=== PATIENT | male | born 1970 | race Caucasian/White ===

== ENCOUNTER 2022-06-02 13:01 | Emergency (ER) | payer OTHER, SELFPAY ==
[2022-06-02] VITALS (20 sets, daily range): BP systolic 110–136; BP diastolic 68–94; PULSE 64–85; RESP 11–19; TEMP 37; O2SAT 94–98
--- NOTE | ~2022-06-02 | XR_ITS ---
EXAMINATION: XR chest 2V DATE: 06/02/2022 13:48 INDICATION: Tachycardia. Midline chest pain. TECHNIQUE: PA and lateral views of the chest were obtained. COMPARISON: Chest radiograph dated 09/14/2017 FINDINGS: Unchanged mild biapical pleural-parenchymal scarring. No other airspace opacities, pulmonary edema, p leural effusion or pneumothorax. The cardiomediastinal silhouette is normal. Visualized bones and sof t tissues are unremarkable. IMPRESSION: 1. No acute cardiopulmonary disease. Reviewed, dictated and finalized at location A.
--- NOTE | 2022-06-02 13:03 | ECG_ITS ---
Measurements Intervals [place] Rate: 79 P: 72 CT: 150 QRS: 39 QRSD: 93 T: 55 QT: 363 QTc: 418 Interpretive Statements SINUS RHYTHM BASELINE ARTIFACT- II, III NORMAL ECG NO PREVIOUS ECG AVAILABLE FOR COMPARISON Electronically Signed On 06-02-2022 21:22:43 CDT by Luis Manuel Finnegan D.O.
[2022-06-02 13:19] LABS: Basophils Absolute Auto 0.1 K/mm3 (0.0-0.1); Basophils Percent Auto 0.6 % (0.2-1.2); Eosinophils Absolute Auto 0.1 K/mm3 (0-0.3); Eosinophils Percent Auto 0.8 % (0-4.4); Hematocrit 41.6 % (42.0-52.0); Hemoglobin 13.4 g/dL (14.0-18.0); Immature Granulocyte Absolute 0.03 K/mm3 (0.00-0.031); Immature Granulocyte Percent A 0.2 % (0-0.5); Lymphocytes Absolute Auto 2.38 K/mm3 (0.9-3.2); Lymphocytes Percent Auto 19.3 % (18.3-44.2); Mean Corpuscular HGB Conc 32.2 g/dl (32-36); Mean Corpuscular Volume 96.3 fl (80-100); Monocytes Absolute Auto 0.6 K/mm3 (0.1-0.6); Monocytes Percent Auto 5.1 % (2.6-8.5); Neutrophils Absolute Auto 9.1 K/mm3 (1.3-6.7); Platelet Count Result 274 k/mm3 (150-375); Red Blood Count 4.32 M/mm3 (4.6-6.20); Red Cell Distribution Width 14.5 % (11.5-14.5); White Blood Count 12.3 K/mm3 (4.5-10.0)
[2022-06-02 13:30] LABS: INR 0.9
[2022-06-02 13:31] LABS: Partial Thromboplastin Time 28.3 SECONDS (22.3-36.8)
[2022-06-02 13:32] LABS: Alanine Aminotransferase 27 U/L (6-50); Albumin Level 4.6 g/dL (3.5-5.1); Alkaline Phosphatase 110 U/L (38-126); Anion Gap 11 mmol/L (8-16); Aspartate Amino Transferase 27 U/L (17-59); Bilirubin,Total 0.2 mg/dL (0.2-1.3); Blood Urea Nitrogen 10 mg/dL (9-20); Calcium 9.3 mg/dL (8.4-10.2); Carbon Dioxide 22 mmol/L (22-30); Chloride 105 mmol/L (98-107); Estimated CRCL calculation 103 ml/min; Estimated Glomerular Filt Rate > 60; Glucose 99 mg/dL (65-110); Lipase 91 U/L (23-300); Potassium 3.9 mmol/L (3.4-5.0); Sodium 138 mmol/L (137-145)
[2022-06-02] MEDS: ASPIRIN 81 MG CHEWABLE TABLET 324 MG PO (13:38)
[2022-06-02 13:44] LABS: Troponin I < 0.012 ng/mL (0.000-0.034)
--- NOTE | 2022-06-02 14:04 | ED.CHESTPAIN ---
HPI - Chest Pain General Chief Complaint: Chest Pain Stated Complaint: chest pain Time Seen by Provider: 06/02/22 13:52 History of Present Illness HPI narrative: 51-year-old male presents to the emergency room today for complaints of substernal chest pain. He says that it will radiate into his left jaw at times. Pain started about an hour prior to coming to the emergency room. No numbness or tingling in his arms or legs. Denies having any shortness of breath or cough. He denies any previous history of [place]. He has seen a control clerk head in the past related to frequent PVCs. He says that he had a stress test done about a year ago that was concerning. They did a follow-up study that involved using contrast that did not show any blockages. He is a smoker. Denies any significant family history of any heart problems. Related Data Home Medications Medication Instructions Recorded Confirmed amitriptyline 25 mg tablet mg 06/02/22 aspirin 81 mg tablet,delayed mg 06/02/22 release cetirizine 10 mg tablet (Zyrtec) 10 mg PO DAILY 06/02/22 06/02/22 cholecalciferol (vitamin D3) 25 25 mcg PO DAILY 06/02/22 06/02/22 mcg (1,000 unit) tablet diltiazem HCl 120 mg mg PO 06/02/22 capsule,extended release 24 hr, controlled (DILT-XR) escitalopram oxalate 20 mg tablet mg 06/02/22 fluticasone propionate 50 intranasal 06/02/22 mcg/actuation nasal spray,suspension meloxicam 7.5 mg tablet mg 06/02/22 rabeprazole 20 mg tablet,delayed mg PO 06/02/22 release rosuvastatin 10 mg tablet mg 06/02/22 triamcinolone acetonide 0.1 % applic topical 06/02/22 topical cream vitamin B complex 1 tablet PO DAILY 06/02/22 06/02/22 Allergies Allergy/AdvReac Type Severity Reaction Status Date / Time codeine Allergy Difficulty Verified 06/02/22 13:34 Breathing Review of Systems Review of Systems: CONSTITUTIONAL: Denies fever, chills, or sweats. EYES: Denies visual changes, redness, or discharge. ENT: Denies rhinorrhea, congestion, sore throat, or otalgia. CARDIOVASCULAR: substernal chest pain, no palpitatoins, no extremity swelling RESPIRATORY: Denies cough or dyspnea. GASTROINTESTINAL: Denies abdominal pain, nausea, vomiting, or diarrhea. GENITOURINARY: Denies dysuria or hematuria. SKIN: Denies rash or itching. MUSCULOSKELETAL: Denies back pain, joint pain, or myalgia. NEUROLOGIC: Denies headache, numbness, dizziness, or weakness. PSYCHIATRIC: Denies anxiety or depression. Exam Narrative: GENERAL: Well-appearing, well-nourished, and in no acute distress. HEAD: Normocephalic, atraumatic. NECK: Supple. No adenopathy or masses. No carotid bruits or JVD CHEST: Clear to auscultation. No respiratory distress. No wheezes rales or rhonchi HEART: Regular rate and rhythm. No murmur heard. Normal peripheral pulses. ABDOMEN: Soft, nontender, nondistended, normal active bowel sounds. EXTREMITIES: Normal range of motion. No edema. SKIN: Warm, dry, no rash. NEURO: No focal deficits. Alert and oriented x3. PSYCH: Normal mood and affect. Course Course Emergency Course: 1644 I have spoken with Cardiology, Dr. Finnegan. Agrees with plan to discharge patient to home since he is currently pain free, low risk with heart score of 2-3, and 2 negative trops in the ER. They would not be able to do a stress test over the weekend in the hospital. He recommends giving patient nitro to take at home if needed and having him call his office to be seen next week for additional evaluation and testing. I have discussed all of this with the patient and he is agreeable with this plan. Vital Signs Vital signs: Vital Signs Temperature 37.0 C 06/02/22 13:12 Pulse Rate 78 06/02/22 13:12 Respiratory Rate 16 06/02/22 13:12 Blood Pressure 119/68 06/02/22 13:12 Pulse Oximetry 97 06/02/22 13:12 Temperature 37.0 C 06/02/22 13:12 Pulse Rate 85 06/02/22 13:33 Respiratory Rate 16 06/02/22 13:12 Blood Pressure 119/68 06/02/22 13:12 P
[2022-06-02 14:42] LABS: D Dimer < 0.27 ug/mL (<0.48)
[2022-06-02] MEDS: fentaNYL CITRATE INJ (*CRX) 100 MCG/2 ML VIAL 50 MCG IV PUSH (14:51)
[2022-06-02] MEDS: NITROGLYCERIN SL 0.4 MG TABLET SUBLINGUAL (14:51)
[2022-06-02 16:40] LABS: Troponin I < 0.012 ng/mL (0.000-0.034)
== END 2022-06-02 18:05 | disposition home or self-care (01) ==
PROVIDERS: General Practice; Emergency Provider Nurse Practitioner Family; PCP Physician Assistant
DX: R07.2 Precordial pain (principal); Z79.82 Long term (current) use of aspirin
CPT/HCPCS: 36415; 71046; 80053; 83690; 84484; 85025; 85380; 85610; 85730; 93005; 96374; 99284; A9270; J3010

== ENCOUNTER 2022-06-04 10:40 | Emergency (ER) | payer OTHER, SELFPAY ==
[2022-06-04] VITALS (26 sets, daily range): BP systolic 111–140; BP diastolic 69–89; PULSE 64–93; RESP 12–20; TEMP 36.6; O2SAT 95–100
--- NOTE | ~2022-06-04 | XR_ITS ---
EXAMINATION: XR chest 2V DATE: 06/04/2022 11:13 INDICATION: Chest pain. TECHNIQUE: Frontal and lateral views of the chest were obtained. COMPARISON: Chest 2 views 06/02/2022 FINDINGS: There is mild scarring at the lung apices. No pleural effusion or pneumothorax. The heart s ize is normal. IMPRESSION: 1. Stable mild scarring at the lung apices. Reviewed, dictated and finalized at location A.
--- NOTE | ~2022-06-04 | CT_ITS ---
EXAMINATION: CTA chest DATE: 06/04/2022 11:59 INDICATION: Midsternal chest pain. Shortness of breath. TECHNIQUE: Computed tomographic angiography (CTA) of the chest was performed with 100 mL Omnipaque-35 0 intravenous contrast. Automated exposure control and iterative reconstruction technique were employ ed. The dose-length product was 282.30 mGy-cm. Maximum intensity projection 3D-reconstructions of the aorta and other arteries were constructed by the technologist on a separate workstation. COMPARISON: Chest 2 views 06/04/2022 FINDINGS: There is mild scarring at the lung apices. There is mild emphysema. There is mild atelectas is bilaterally. The heart size is normal. No pericardial effusion. Thoracic aorta is normal. There is no pulmonary embolus, but sensitivity is mildly decreased by suboptimal opacification of the pulmona ry arteries. The gallbladder is contracted. There is mild thoracic spondylosis. IMPRESSION: 1. No pulmonary embolus. 2. Mild emphysema. 3. Mild scarring at the lung apices. Reviewed, dictated and finalized at location A.
--- NOTE | 2022-06-04 10:41 | ECG_ITS ---
Measurements Intervals [place] Rate: 76 P: 72 [place]: 142 QRS: 44 QRSD: 98 T: 69 QT: 356 QTc: 402 Interpretive Statements SINUS RHYTHM BASELINE ARTIFACT- II, III, AVF NORMAL ECG COMPARED TO ECG 06/02/2022 13:05:18 NO SIGNIFICANT CHANGES Electronically Signed On 06-04-2022 21:40:09 CDT by Luis Manuel Finnegan D.O.
[2022-06-04] MEDS: ASPIRIN 81 MG CHEWABLE TABLET 324 MG PO (10:52)
--- NOTE | 2022-06-04 11:03 | ED.CHESTPAIN ---
HPI - Chest Pain General Chief Complaint: Chest Pain Stated Complaint: chest pain Time Seen by Provider: 06/04/22 10:46 Source: patient, RN notes reviewed and old records reviewed Mode of arrival: ambulatory Limitations: no limitations History of Present Illness HPI narrative: This is a 51 year old male with history of tachycardia who presents for evaluation of chest pain. Patient developed chest pain on Sunday and it has been intermittent. On Sunday, he reported right sternal pain that labs for hours. He was evaluated in ER and discharged home with nitroglycerin. He was going to follow up with cardiology tomorrow. He developed right sternal pain last night that resolved after taking nitroglycerin. This morning he was resting when he developed burning pressure across his whole chest pain. He took nitroglycerin x 2 without relief so he came to ER. He denies associated sob, dizziness or nausea. He reports 1 year ago he had concerning stress test so a CTA heart was performed. Related Data Home Medications Medication Instructions Recorded Confirmed amitriptyline 25 mg tablet mg 06/02/22 aspirin 81 mg tablet,delayed mg 06/02/22 release cetirizine 10 mg tablet (Zyrtec) 10 mg PO DAILY 06/02/22 06/02/22 cholecalciferol (vitamin D3) 25 25 mcg PO DAILY 06/02/22 06/02/22 mcg (1,000 unit) tablet diltiazem HCl 120 mg mg PO 06/02/22 capsule,extended release 24 hr, controlled (DILT-XR) escitalopram oxalate 20 mg tablet mg 06/02/22 fluticasone propionate 50 intranasal 06/02/22 mcg/actuation nasal spray,suspension meloxicam 7.5 mg tablet mg 06/02/22 rabeprazole 20 mg tablet,delayed mg PO 06/02/22 release rosuvastatin 10 mg tablet mg 06/02/22 triamcinolone acetonide 0.1 % applic topical 06/02/22 topical cream vitamin B complex 1 tablet PO DAILY 06/02/22 06/02/22 Allergies Allergy/AdvReac Type Severity Reaction Status Date / Time codeine Allergy Difficulty Verified 06/04/22 10:47 Breathing Review of Systems Review of Systems: All systems reviewed & are unremarkable except as noted in HPI and below Constitutional: Constitutional: Denies chills, Denies fatigue and Denies fever(s) Cardiovascular: Cardiovascular: Reports chest pain and Denies rapid heart rate Respiratory: Respiratory: Denies chest congestion and Denies cough Gastrointestinal: Gastrointestinal: Denies abdominal pain, Reports heartburn, Denies nausea and Denies vomiting PMFSH Past Medical History Medical History (Updated 06/04/22 @ 14:37 by Celina Traylor MD) Tachycardia Exam Narrative: GENERAL: Well-appearing, well-nourished, and in no acute distress. HEAD: Normocephalic, atraumatic EYES: PERRLA and EOMI, conjunctiva clear without discharge THROAT:Mucous membranes moist, Oropharynx normal without erythema, exudate, peritonsillar swelling or fluctuance NECK: Supple, without lymphadenopathy or mass RESPIRATORY: No respiratory distress, Airway patent, Respirations non-labored, Clear to auscultation without rales, rhonchi or wheeze HEART: Regular rate and rhythm. No murmur heard. Normal peripheral pulses. ABDOMEN: Soft, nontender, nondistended, normal active bowel sounds. No masses. No rebound or guarding, No organomegaly. EXTREMITIES: No edema, normal strength with full range of motion. SKIN: Warm, dry, normal color without rash NEURO: Alert and oriented x3. CN 2-12 grossly intact. No focal deficits. PSYCH: Normal mood and affect. Course Reevaluation(s) Reevaluation #1: I Discussed case with DR. Finneagn about patient. His pain sound atypical . Dr. Finnegan agrees that patient's symptoms unlikely cardiac given recent normal CTA heart . He does want to follow up with patient as outpatient. Date: 06/04/22 Time: 12:59 Reevaluation #2: PAtient's evaluation is unremarkable and pain atypical. Aortic etiology rule out and negative d dimer 2 days ago. No sign of DVT. Unlikely ACS but will follow up wit
[2022-06-04 11:06] LABS: Basophils Absolute Auto 0.1 K/mm3 (0.0-0.1); Basophils Percent Auto 0.7 % (0.2-1.2); Eosinophils Absolute Auto 0.2 K/mm3 (0-0.3); Eosinophils Percent Auto 1.8 % (0-4.4); Hematocrit 45.6 % (42.0-52.0); Hemoglobin 14.8 g/dL (14.0-18.0); Immature Granulocyte Absolute 0.03 K/mm3 (0.00-0.031); Immature Granulocyte Percent A 0.3 % (0-0.5); Lymphocytes Absolute Auto 2.07 K/mm3 (0.9-3.2); Lymphocytes Percent Auto 19.1 % (18.3-44.2); Mean Corpuscular HGB Conc 32.5 g/dl (32-36); Mean Corpuscular Hemoglobin 31.3 pg (26-34); Mean Corpuscular Volume 96.4 fl (80-100); Mean Platelet Volume 8.9 fl (7.4-10.4); Monocytes Absolute Auto 0.7 K/mm3 (0.1-0.6); Monocytes Percent Auto 6.5 % (2.6-8.5); Neutrophils Absolute Auto 7.8 K/mm3 (1.3-6.7); Neutrophils Percent Auto 71.6 % (45.5-73.1); Platelet Count Result 303 k/mm3 (150-375); Red Blood Count 4.73 M/mm3 (4.6-6.20); Red Cell Distribution Width 14.5 % (11.5-14.5); White Blood Count 10.9 K/mm3 (4.5-10.0)
[2022-06-04 11:16] LABS: Alanine Aminotransferase 26 U/L (6-50); Albumin Level 4.5 g/dL (3.5-5.1); Alkaline Phosphatase 102 U/L (38-126); Anion Gap 9 mmol/L (8-16); Aspartate Amino Transferase 28 U/L (17-59); Bilirubin,Total 0.3 mg/dL (0.2-1.3); Blood Urea Nitrogen 16 mg/dL (9-20); Calcium 9.2 mg/dL (8.4-10.2); Carbon Dioxide 28 mmol/L (22-30); Chloride 105 mmol/L (98-107); Estimated CRCL calculation 81 ml/min; Estimated Glomerular Filt Rate > 60; Glucose 110 mg/dL (65-110); Lipase 114 U/L (23-300); Potassium 4.3 mmol/L (3.4-5.0); Sodium 142 mmol/L (137-145)
[2022-06-04 11:28] LABS: Troponin I < 0.012 ng/mL (0.000-0.034)
[2022-06-04 11:34] LABS: INR 0.9
[2022-06-04 11:35] LABS: Partial Thromboplastin Time 29.1 SECONDS (22.3-36.8)
--- NOTE | 2022-06-04 11:53 | PC.NURSE ---
pt.to CT
[2022-06-04] MEDS: BELLADONNA ALK/PHENOB ELIX 10 ML, MAG HYDROX/ALUMINUM HYD/SIMETH 30 ML, LIDOCAINE HCL 2... PO (12:47)
[2022-06-04 14:23] LABS: Troponin I < 0.012 ng/mL (0.000-0.034)
== END 2022-06-04 14:50 | disposition home or self-care (01) ==
PROVIDERS: Emergency Provider General Practice; PCP Physician Assistant
DX: R07.89 Other chest pain (principal); J43.9 Emphysema, unspecified; Z79.82 Long term (current) use of aspirin
CPT/HCPCS: 36415; 71046; 71275; 80053; 83690; 84484; 85025; 85610; 85730; 93005; 99284; A9270; Q9967

== ENCOUNTER 2022-11-22 11:05 | Emergency (ER) | payer OTHER, SELFPAY ==
--- NOTE | ~2022-11-22 | XR_ITS ---
EXAMINATION: XR chest 2V DATE: 11/22/2022 12:04 INDICATION: Chest pain. TECHNIQUE: Frontal and lateral views of the chest were obtained on 3 radiographs. COMPARISON: Chest 2 views 06/04/2022, chest CT 06/04/2022 FINDINGS: There is mild scarring at the lung apices. No pleural effusion or pneumothorax. The heart s ize is normal. IMPRESSION: 1. Stable mild scarring at the lung apices. Reviewed, dictated and finalized at location A. GRATION INSPECTOR
--- NOTE | 2022-11-22 11:05 | ECG_ITS ---
Measurements Intervals [place] Rate: 91 P: 60 [place]: 120 QRS: 59 QRSD: 91 T: 73 QT: 339 QTc: 418 Interpretive Statements SINUS RHYTHM NORMAL ECG COMPARED TO ECG 06/04/2022 10:47:33 NO SIGNIFICANT CHANGES Electronically Signed On 11-22-2022 11:46:31 INFRASTRUCTURE ARCHITECT by Luis Manuel Finnegan D.O.
[2022-11-22 11:11] VITALS: BP 125/82; PULSE 96; RESP 12; TEMP 36.9; O2SAT 100
[2022-11-22 11:29] LABS: Basophils Absolute Auto 0.1 K/mm3 (0.0-0.1); Basophils Percent Auto 0.5 % (0.2-1.2); Eosinophils Percent Auto 0.2 % (0-4.4); Hematocrit 43.2 % (42.0-52.0); Hemoglobin 14.2 g/dL (14.0-18.0); Immature Granulocyte Absolute 0.06 K/mm3 (0.00-0.031); Immature Granulocyte Percent A 0.5 % (0-0.5); Lymphocytes Absolute Auto 1.93 K/mm3 (0.9-3.2); Lymphocytes Percent Auto 15.4 % (18.3-44.2); Mean Corpuscular HGB Conc 32.9 g/dl (32-36); Mean Corpuscular Hemoglobin 31.6 pg (26-34); Mean Corpuscular Volume 96.2 fl (80-100); Monocytes Absolute Auto 1.1 K/mm3 (0.1-0.6); Monocytes Percent Auto 8.5 % (2.6-8.5); Neutrophils Absolute Auto 9.4 K/mm3 (1.3-6.7); Neutrophils Percent Auto 74.9 % (45.5-73.1); Platelet Count Result 302 k/mm3 (150-375); Red Blood Count 4.49 M/mm3 (4.6-6.20); Red Cell Distribution Width 13.8 % (11.5-14.5); White Blood Count 12.6 K/mm3 (4.5-10.0)
[2022-11-22 11:41] LABS: Alanine Aminotransferase 26 U/L (6-50); Albumin Level 4.7 g/dL (3.5-5.1); Alkaline Phosphatase 94 U/L (38-126); Anion Gap 7 mmol/L (8-16); Aspartate Amino Transferase 22 U/L (17-59); Bilirubin,Total 0.4 mg/dL (0.2-1.3); Blood Urea Nitrogen 20 mg/dL (9-20); Calcium 9.1 mg/dL (8.4-10.2); Carbon Dioxide 25 mmol/L (22-30); Chloride 106 mmol/L (98-107); Estimated CRCL calculation 95 ml/min; Estimated Glomerular Filt Rate > 60; Glucose 96 mg/dL (65-110); Lipase 133 U/L (23-300); Potassium 4.2 mmol/L (3.4-5.0); Sodium 138 mmol/L (137-145)
[2022-11-22 11:46] LABS: INR 0.9; Prothrombin Time 11.8 Seconds (11.1-14.7)
[2022-11-22 11:47] LABS: Partial Thromboplastin Time 26.2 SECONDS (22.3-36.8)
[2022-11-22 11:52] LABS: Troponin I < 0.012 ng/mL (0.000-0.034)
[2022-11-22 11:53] VITALS: BP 117/84; PULSE 80; RESP 18; O2SAT 99
--- NOTE | 2022-11-22 13:23 | ED.CHESTPAIN ---
HPI - Chest Pain General Chief Complaint: Chest Pain Stated Complaint: chest pain, headache Time Seen by Provider: 11/22/22 13:14 Source: patient and family Mode of arrival: ambulatory Limitations: no limitations History of Present Illness HPI narrative: Patient is 52 years old white male presented to the ED with sudden onset of sharp pain at left chest while sitting watching TV, denies any aggravating or relieving factors, 10 out of 10, 2 out of 10 on arrival to the ED. He denies radiation of pain, shortness of breath, fever, chills, nausea, vomiting or respiratory symptoms. Patient is telling me that this is the fourth ED visit for the same complaints over the last few months. Patient was in our hospital May 2022 with negative work-up. Patient reports lifting heavy bags of dirt and visits 5 days ago and yesterday Related Data Home Medications Medication Instructions Recorded Confirmed amitriptyline 25 mg tablet mg 06/02/22 aspirin 81 mg tablet,delayed mg 06/02/22 release cetirizine 10 mg tablet (Zyrtec) 10 mg PO DAILY 06/02/22 06/02/22 cholecalciferol (vitamin D3) 25 25 mcg PO DAILY 06/02/22 06/02/22 mcg (1,000 unit) tablet diltiazem HCl 120 mg mg PO 06/02/22 capsule,extended release 24 hr, controlled (DILT-XR) escitalopram oxalate 20 mg tablet mg 06/02/22 fluticasone propionate 50 intranasal 06/02/22 mcg/actuation nasal spray,suspension meloxicam 7.5 mg tablet mg 06/02/22 rabeprazole 20 mg tablet,delayed mg PO 06/02/22 release rosuvastatin 10 mg tablet mg 06/02/22 triamcinolone acetonide 0.1 % applic topical 06/02/22 topical cream vitamin B complex 1 tablet PO DAILY 06/02/22 06/02/22 Allergies Allergy/AdvReac Type Severity Reaction Status Date / Time codeine Allergy Difficulty Verified 06/04/22 10:47 Breathing Review of Systems Review of Systems: All systems reviewed & are unremarkable except as noted in HPI and below PMFSH Past Medical History Medical History Tachycardia Exam Narrative: General appearance: Well-developed, well-nourished Skin: Normal color Head: Normocephalic, nontraumatic Eyes: Clear conjunctiva ENT: Oropharynx normal, ears normal, nose normal Neck: Supple, nontender Chest and respiratory: Airway patent, no respiratory distress, no accessory muscle use, mild diffuse tenderness left chest, no bruises, no swelling or rash Heart: Regular rate/rhythm Abdomen: Soft, nontender, no organomegaly, quiet bowel sounds Vascular: Normal peripheral pulses, normal capillary refill. Musculoskeletal: Normal range of motion, nontender back Neurologic: Alert and oriented ?3, RN NIGHT is normal as tested, no gross motor deficit Course Reevaluation(s) Reevaluation #1: Currently patient is pain-free, 0 out of 10, Date: 11/22/22 Time: 13:58 Vital Signs Vital signs: Vital Signs Temperature 36.9 C 11/22/22 11:11 Pulse Rate 96 11/22/22 11:11 Respiratory Rate 12 11/22/22 11:11 Blood Pressure 125/82 11/22/22 11:11 Pulse Oximetry 100 11/22/22 11:11 Oxygen Delivery Room Air 11/22/22 11:11 Temperature 36.9 C 11/22/22 11:11 Pulse Rate 80 11/22/22 11:53 Respiratory Rate 18 11/22/22 11:53 Blood Pressure 117/84 11/22/22 11:53 Pulse Oximetry 99 11/22/22 11:53 Oxygen Delivery Room Air 11/22/22 11:49 MDM - Chest Pain MDM Narrative Medical decision making narrative: Patient is 52 years old white male presents with sudden onset of left chest pain while sitting watching TV, sharp, had recent lifting and pushing over the last few days at his backyard. Physical examination showed some tenderness
[2022-11-22] MEDS: KETOROLAC 30 MG/ML VIAL (*BKC) IV PUSH (13:56)
[2022-11-22 14:15] VITALS: BP 114/72; PULSE 77; RESP 14; O2SAT 98
[2022-11-22 14:25] LABS: Troponin I < 0.012 ng/mL (0.000-0.034)
== END 2022-11-22 14:16 | disposition home or self-care (01) ==
PROVIDERS: Emergency Provider Emergency Medicine; PCP Physician Assistant
DX: R07.89 Other chest pain (principal)
CPT/HCPCS: 36415; 71046; 80053; 83690; 84484; 85025; 85610; 85730; 93005; 96374; 99284; J1885

== ENCOUNTER 2023-03-20 19:28 | Emergency (ER) | payer OTHER, SELFPAY ==
[2023-03-20] VITALS (27 sets, daily range): BP systolic 100–129; BP diastolic 68–100; PULSE 75–104; RESP 9–22; TEMP 37; O2SAT 94–98
--- NOTE | ~2023-03-20 | CT_ITS ---
Clinical Indication: Chest pain, dissection CT Scan of the Chest with Contrast: Technique: Contiguous sections were acquired throughout the chest after intravenous administration of 100 cc of Omnipaque 350. Dose reduction technique was used on this scan by utilizing automated expos ure control and iterative reconstruction technique. The dose-length product (DLP) was 295.77 mGy-cm. COMPARISON: 06/04/2022 Findings: There is no evidence of any significant mediastinal, hilar or axillary lymphadenopathy. There is no evidence of aortic dissection or aneurysm. There is no evidence of pleural or pericardial effusion. The lungs are clear. No pulmonary nodules or infiltrates are noted. Images through the upper abdomen reveal no abnormalities. Impression: No aortic aneurysm or dissection. Clear lungs. Reviewed, dictated and finalized at [facility]. Impression: No aortic aneurysm or dissection. Clear lungs.
--- NOTE | ~2023-03-20 | XR_ITS ---
Clinical Indication: Chest pain PA and lateral views of the chest: Comparison: 11/22/2022 Findings: The lungs are clear, without evidence of focal consolidation or pleural effusion. Cardiome diastinal silhouette is within normal limits. Bones and soft tissues are unremarkable. Impression: Normal chest. Reviewed, dictated and finalized at location . Impression: Normal chest.
--- NOTE | 2023-03-20 19:29 | ECG_ITS ---
Measurements Intervals [place] Rate: 92 P: 68 [place]: 145 QRS: 38 QRSD: 108 T: 64 QT: 342 QTc: 423 Interpretive Statements SINUS RHYTHM BASELINE ARTIFACT- I, II, V4 NORMAL ECG COMPARED TO ECG 11/22/2022 11:09:42 NO SIGNIFICANT CHANGES Electronically Signed On 03-21-2023 6:20:57 CDT by Luis Manuel Finnegan D.O.
[2023-03-20 19:43] LABS: Basophils Absolute Auto 0.1 K/mm3 (0.0-0.1); Basophils Percent Auto 0.8 % (0.2-1.2); Eosinophils Absolute Auto 0.4 K/mm3 (0-0.3); Eosinophils Percent Auto 3.3 % (0-4.4); Hematocrit 39.8 % (42.0-52.0); Hemoglobin 13.3 g/dL (14.0-18.0); Immature Granulocyte Absolute 0.05 K/mm3 (0.00-0.031); Immature Granulocyte Percent A 0.4 % (0-0.5); Lymphocytes Absolute Auto 2.95 K/mm3 (0.9-3.2); Lymphocytes Percent Auto 25.4 % (18.3-44.2); Mean Corpuscular HGB Conc 33.4 g/dl (32-36); Mean Corpuscular Volume 95.7 fl (80-100); Monocytes Percent Auto 8.9 % (2.6-8.5); Neutrophils Absolute Auto 7.1 K/mm3 (1.3-6.7); Neutrophils Percent Auto 61.2 % (45.5-73.1); Platelet Count Result 250 k/mm3 (150-375); Red Blood Count 4.16 M/mm3 (4.6-6.20); Red Cell Distribution Width 13.1 % (11.5-14.5); White Blood Count 11.6 K/mm3 (4.5-10.0)
[2023-03-20 19:54] LABS: Alanine Aminotransferase 27 U/L (6-50); Albumin Level 4.4 g/dL (3.5-5.1); Alkaline Phosphatase 92 U/L (38-126); Anion Gap 8 mmol/L (8-16); Aspartate Amino Transferase 30 U/L (17-59); Bilirubin,Total 0.4 mg/dL (0.2-1.3); Blood Urea Nitrogen 19 mg/dL (9-20); Calcium 8.8 mg/dL (8.4-10.2); Carbon Dioxide 24 mmol/L (22-30); Chloride 105 mmol/L (98-107); Estimated CRCL calculation 77 ml/min; Estimated Glomerular Filt Rate > 60; Glucose 108 mg/dL (65-110); INR 0.9; Lipase 75 U/L (23-300); Potassium 3.9 mmol/L (3.4-5.0); Prothrombin Time 12.7 Seconds (11.1-14.7); Sodium 137 mmol/L (137-145)
[2023-03-20] MEDS: ASPIRIN 81 MG CHEWABLE TABLET 324 MG PO (19:54)
[2023-03-20 19:55] LABS: Partial Thromboplastin Time 29.4 SECONDS (22.3-36.8)
[2023-03-20 20:06] LABS: Troponin I < 0.012 ng/mL (0.000-0.034)
--- NOTE | 2023-03-20 20:10 | ED.CHESTPAIN ---
HPI - Chest Pain General Chief Complaint: Chest Pain <Dorota Canseco PA-C - Last Filed: 03/21/23 00:51> Stated Complaint: chest pain/lightheaded <Dorota Canseco PA-C - Last Filed: 03/21/23 00:51> Time Seen by Provider: 03/20/23 19:46 <Dorota Canseco PA-C - Last Filed: 03/21/23 00:51> History of Present Illness HPI narrative: 52-year-old male with a history of tachycardia and COPD reports for evaluation of intermittent left sided chest pain since 6:30 PM this evening. Patient states he walked outside to his garage to grab an extension cord when he began to experience chest pain. States he went inside and sat down and had associated lightheadedness, dyspnea and nausea. He does report diaphoresis, but states it may have been because he was outside. States the pain has been intermittent since the onset and at times does worsen with deep inspiration. He is currently denying chest pain. The pain does not radiate to his neck, back, jaw. His who is present at bedside assists with history and states she took his blood pressure multiple times while he was sitting down at the onset of symptoms. His blood pressures ranged from 130 systolic to 84 systolic. Patient reports the lightheadedness is worse when standing. He denies vomiting, diarrhea, sensation of anxiety, lower extremity edema, history of VTE, cough, congestion, fever. He has been evaluated multiple times at [facility] for chest pain in the past year as well as [place]. Patient states he was admitted to [facility] 2 months ago and had a negative stress test and echo. 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 Reports having 3 beers today, mowing the lawn, and sitting outside banner prior to onset of sx. <Dorota Canseco PA-C - Last Filed: 03/21/23 00:51> Related Data Home Medications: Home Medications Medication Instructions Recorded Confirmed amitriptyline 25 mg tablet mg 06/02/22 aspirin 81 mg tablet,delayed mg 06/02/22 release cetirizine 10 mg tablet (Zyrtec) 10 mg PO DAILY 06/02/22 06/02/22 cholecalciferol (vitamin D3) 25 25 mcg PO DAILY 06/02/22 06/02/22 mcg (1,000 unit) tablet diltiazem HCl 120 mg mg PO 06/02/22 capsule,extended release 24 hr, controlled (DILT-XR) escitalopram oxalate 20 mg tablet mg 06/02/22 fluticasone propionate 50 intranasal 06/02/22 mcg/actuation nasal spray,suspension meloxicam 7.5 mg tablet mg 06/02/22 rabeprazole 20 mg tablet,delayed mg PO 06/02/22 release rosuvastatin 10 mg tablet mg 06/02/22 triamcinolone acetonide 0.1 % applic topical 06/02/22 topical cream vitamin B complex 1 tablet PO DAILY 06/02/22 06/02/22 <Dorota Canseco PA-C - Last Filed: 03/21/23 00:51> Allergies/Adverse Reactions: Allergies Allergy/AdvReac Type Severity Reaction Status Date / Time codeine Allergy Difficulty Verified 03/20/23 20:01 Breathing <Dorota Canseco PA-C - Last Filed: 03/21/23 00:51> Review of Systems Review of Systems: CONSTITUTIONAL: Denies fever, chills EYES: Denies visual changes, redness, or discharge. ENT: Denies rhinorrhea, congestion, sore throat, or otalgia. CARDIOVASCULAR: See HPI RESPIRATORY: Denies cough or dyspnea. GASTROINTESTINAL: See HPI GENITOURINARY: Denies dysuria or hematuria. SKIN: Denies rash or itching. MUSCULOSKELETAL: Denies back pain, joint pain, or myalgia. NEUROLOGIC: See HPI PSYCHIATRIC: Denies anxiety or depression. <Dorota Canseco PA-C - Last Filed: 03/21/23 00:51> [facility] Past Medical History Medical History: Medical History Tachycardia <Dorota Canseco PA-C - Last Filed: 03/21/23 00:51> Exam Narrative: GENERAL: Well-appearing, in no acute distress. Patient resting comfortably examined. He is pleasant and conversational HEAD: Normocephalic EYES: PERRLA, EOMI ENT: Nares clear. Mucous membranes moist. Oropharynx without tonsillar h
[2023-03-20] MEDS: SODIUM CHLORIDE 0.9% IV 1,000 ML 999 ML IV CONT (20:29)
[2023-03-20] MEDS: ONDANSETRON INJ 4 MG/2 ML VIAL IV PUSH (20:29)
[2023-03-20 20:35] LABS: NT Pro B Type Natriuretic Pept < 20 pg/mL (19.9-100)
--- NOTE | 2023-03-20 21:56 | PC.NURSE ---
pt is axox4, abc are wnl nad. airway is patent, spontaneous and self maintained. pt sts that he has a RESTREPO and denies c/p. iv is locked but has +blood return and flushes. 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 family at bedside and call light is within reach
--- NOTE | 2023-03-20 22:22 | ECG_ITS ---
Measurements Intervals [place] Rate: 71 P: 52 [place]: 154 QRS: 31 QRSD: 109 T: 57 QT: 395 QTc: 430 Interpretive Statements SINUS RHYTHM NORMAL ECG COMPARED TO ECG 03/20/2023 19:32:37 NO SIGNIFICANT CHANGES Electronically Signed On 03-21-2023 6:37:04 CDT by Luis Manuel Finnegan D.O.
[2023-03-20 22:44] LABS: Troponin I < 0.012 ng/mL (0.000-0.034)
--- NOTE | 2023-04-12 12:33 | PC.NURSE ---
Late entry. Normal saline stopped at 03/20/23 at 2120.
== END 2023-03-20 23:37 | disposition home or self-care (01) ==
PROVIDERS: Emergency Medicine; Emergency Provider Physician Assistant; PCP Physician Assistant
DX: R07.89 Other chest pain (principal); J44.9 Chronic obstructive pulmonary disease, unspecified
CPT/HCPCS: 36415; 71046; 71275; 80053; 83690; 83880; 84484; 85025; 85610; 85730; 93005; 96361; 96374; 99284; A9270; J2405; J7030; Q9967

== ENCOUNTER 2023-04-01 22:29 | Emergency (ER) | payer OTHER, SELFPAY ==
--- NOTE | ~2023-04-01 | CT_ITS ---
Noncontrast CT scan of the lumbar spine CLINICAL HISTORY: Back pain radiating to right leg TECHNIQUE: Axial noncontrast imaging of the lumbar spine was performed. Sagittal and coronal reformat dano images were constructed. Dose reduction technique was used on this scan by utilizing automated ex posure control and iterative reconstruction technique. The dose-length product (DLP) was 485.24 mGy-c m. FINDINGS: There is no fracture or subluxation of lumbar spine. Vertebral bodies maintain normal heigh t and alignment. Intervertebral disc spaces are well preserved. At L1-L2, there is no disc bulge or herniation. No spinal canal stenosis or neural foraminal narrowin g. At L2-L3, there is no disc bulge or herniation. No spinal canal stenosis or neural foraminal narrowin g. L3-L4, there is no disc bulge or herniation. No spinal canal stenosis or neural foraminal narrowing. At L4-L5, there is no significant disc bulge or herniation. No spinal canal stenosis or neural forami nal narrowing. At L5-S1, there is minimal disc bulge. No spinal canal stenosis or neural foraminal narrowing. Paravertebral soft tissues are unremarkable. Impression: Minimal degenerative change at L5-S1, as detailed above. Reviewed, dictated and finalized at location M. Impression: Minimal degenerative change at L5-S1, as detailed above.
[2023-04-01 22:31] VITALS: BP 120/92; PULSE 95; RESP 16; TEMP 36.3; O2SAT 99
[2023-04-01 22:37] VITALS: BP 131/89; PULSE 85; RESP 16; TEMP 36.4; O2SAT 100
--- NOTE | 2023-04-01 23:10 | ED.BACK ---
HPI - Back Pain/Injury General Chief Complaint: Back Pain/Injury Stated Complaint: leg pain Time Seen by Provider: 04/01/23 22:49 Source: patient Mode of arrival: ambulatory Limitations: no limitations History of Present Illness HPI Narrative: This is a 52 year old male that presents to the ER for low back pain ongoing today. Reports pain radiating down the bilateral lower extremities. Worse with movement and relieved with rest. No recent injuries or trauma. No previous surgeries on the back. Reports chronic back problems due to his time in the . Denies fever, saddle anesthesia, or bowel/bladder incontinence. Related Data Home Medications Medication Instructions Recorded Confirmed amitriptyline 25 mg tablet mg 06/02/22 aspirin 81 mg tablet,delayed mg 06/02/22 release cetirizine 10 mg tablet (Zyrtec) 10 mg PO DAILY 06/02/22 06/02/22 cholecalciferol (vitamin D3) 25 25 mcg PO DAILY 06/02/22 06/02/22 mcg (1,000 unit) tablet diltiazem HCl 120 mg mg PO 06/02/22 capsule,extended release 24 hr, controlled (DILT-XR) escitalopram oxalate 20 mg tablet mg 06/02/22 fluticasone propionate 50 intranasal 06/02/22 mcg/actuation nasal spray,suspension meloxicam 7.5 mg tablet mg 06/02/22 rabeprazole 20 mg tablet,delayed mg PO 06/02/22 release rosuvastatin 10 mg tablet mg 06/02/22 triamcinolone acetonide 0.1 % applic topical 06/02/22 topical cream vitamin B complex 1 tablet PO DAILY 06/02/22 06/02/22 Allergies Allergy/AdvReac Type Severity Reaction Status Date / Time codeine Allergy Difficulty Verified 04/01/23 22:33 Breathing Review of Systems Review of Systems: CONSTITUTIONAL: Denies fever SKIN: Denies rash MUSCULOSKELETAL: Reports back pain, joint pain, and myalgia. NEUROLOGIC: Denies numbness, or weakness. All systems reviewed & are unremarkable except as noted in HPI and below PMFSH Past Medical History Medical History (Updated 04/02/23 @ 01:13 by Soledad Coleman PA-C) History of hyperlipidemia Social History Social History (Updated 04/01/23 @ 23:12 by Soledad Coleman PA-C) Smoking status: Current every day smoker Exam Narrative: GENERAL: Well-appearing, well-nourished, and in no acute distress. HEAD: Normocephalic, atraumatic. EYES: EOMI. CHEST: Clear to auscultation. No respiratory distress. No wheezes rales or rhonchi HEART: Regular rate and rhythm. No murmur heard. Normal peripheral pulses. BACK: No midline spinal tenderness EXTREMITIES: Normal range of motion. No edema. Strength equal in bilateral lower extremities (5/5). Normal DP pulses SKIN: Warm, dry, no rash. NEURO: No focal deficits. Alert and oriented x3. Normal gait PSYCH: Normal mood and affect Course Course Emergency Course: Patient and family updated on workup and agree with plan of care Vital Signs Vital signs: Vital Signs Temperature 97.4 F L 04/01/23 22:31 Pulse Rate 95 04/01/23 22:31 Respiratory Rate 16 04/01/23 22:31 Blood Pressure 120/92 H 04/01/23 22:31 Pulse Oximetry 99 04/01/23 22:31 Oxygen Delivery Room Air 04/01/23 22:31 Temperature 97.5 F L 04/01/23 22:37 Pulse Rate 85 04/01/23 22:37 Respiratory Rate 16 04/01/23 22:37 Blood Pressure 131/89 04/01/23 22:37 Pulse Oximetry 100 04/01/23 22:37 Oxygen Delivery Room Air 04/01/23 22:31 MDM - Back Pain/Injury MDM Narrative Medical decision making narrative: Patient presents to the emergency department for low back pain noted today. No recent injury or trauma. Patient is neurologically intact. CT scan of the lumbar spine shows small posterior disc bulge at L5/S1 as well as small central disc protrusion at L4/L5. Patient given dose of Tylenol and Valium with improvement. Reports he does have follow-up with a neurosurgeon this month. Instructed to continue to rest, ice and take [id number] pain medication as needed. Will be prescribed muscle relaxer as needed for p
[2023-04-01] MEDS: ACETAMINOPHEN 500 MG TABLET 1000 MG PO (23:16)
[2023-04-01] MEDS: diazePAM INJ (*CRX) 10 MG/2 ML SYRINGE 5 MG IM (23:17)
[2023-04-02 01:28] VITALS: BP 113/83; PULSE 91; RESP 16; O2SAT 98
== END 2023-04-02 01:30 | disposition home or self-care (01) ==
PROVIDERS: Emergency Provider Physician Assistant; PCP Physician Assistant
DX: M54.41 Lumbago with sciatica, right side (principal); E78.5 Hyperlipidemia, unspecified; F17.200 Nicotine dependence, unspecified, uncomplicated; Z79.82 Long term (current) use of aspirin
CPT/HCPCS: 72131; 96372; 99284; A9270; J3360

== ENCOUNTER 2023-04-06 16:08 | Emergency (ER) | payer OTHER, SELFPAY ==
[2023-04-06 16:10] VITALS: BP 117/75; PULSE 67; RESP 16; TEMP 36.6; O2SAT 96
--- NOTE | 2023-04-06 16:37 | ED.GENADULT ---
HPI - General Adult General Chief complaint: Back Pain/Injury Stated complaint: Bilateral leg pain Time Seen by Provider: 04/06/23 16:23 Source: patient Mode of arrival: ambulatory Limitations: no limitations History of Present Illness HPI narrative: This is a 52-year-old male who presents to the ED with chief complaint of low back pain radiating into the bilateral lower extremities for the past week. He was seen here 6 days ago for the same. States he was given prescription for diazepam but this is not helped at all. He states 800 mg of ibuprofen did not help either. He reports the pain patient radiates into both of the hips laterally and extends past the knee on occasion. Denies any new injuries. Denies saddle anesthesia, fevers, bowel or bladder incontinence. Denies numbness or weakness. Related Data Home Medications Medication Instructions Recorded Confirmed amitriptyline 25 mg tablet mg 06/02/22 aspirin 81 mg tablet,delayed mg 06/02/22 release cetirizine 10 mg tablet (Zyrtec) 10 mg PO DAILY 06/02/22 06/02/22 cholecalciferol (vitamin D3) 25 25 mcg PO DAILY 06/02/22 06/02/22 mcg (1,000 unit) tablet diltiazem HCl 120 mg mg PO 06/02/22 capsule,extended release 24 hr, controlled (DILT-XR) escitalopram oxalate 20 mg tablet mg 06/02/22 fluticasone propionate 50 intranasal 06/02/22 mcg/actuation nasal spray,suspension meloxicam 7.5 mg tablet mg 06/02/22 rabeprazole 20 mg tablet,delayed mg PO 06/02/22 release rosuvastatin 10 mg tablet mg 06/02/22 triamcinolone acetonide 0.1 % applic topical 06/02/22 topical cream vitamin B complex 1 tablet PO DAILY 06/02/22 06/02/22 Allergies Allergy/AdvReac Type Severity Reaction Status Date / Time codeine Allergy Difficulty Verified 04/01/23 22:33 Breathing PMFSH Past Medical History Medical History (Updated 04/06/23 @ 16:47 by Kahlil Jones PA-C) History of hyperlipidemia Social History Social History (Updated 04/01/23 @ 23:12 by Soledad Coleman PA-C) Smoking status: Current every day smoker Exam Narrative: GENERAL: Well-appearing, well-nourished, and in no acute distress. HEAD: Normocephalic, atraumatic. EYES: PERRLA and EOMI. ENT: Nares clear, no rhinorrhea or epistaxis. Mucous membranes moist. Oropharynx without tonsillar hypertrophy exudate or other lesions. NECK: Supple. No adenopathy or masses. CHEST: No respiratory distress. Clear to auscultation. No wheezes rales or rhonchi HEART: Regular rate and rhythm. No murmur heard. Normal peripheral pulses. ABDOMEN: Soft, nontender, nondistended, normal active bowel sounds. MSK: Mild paraspinal lumbar tenderness bilaterally. No midline CT LS spine tenderness. Positive straight leg raise test bilaterally. 5 out of 5 strength and sensation throughout the upper and lower extremities. No saddle anesthesia. SKIN: Warm, dry, no rash. NEURO: Alert and oriented x3. No focal deficits. PSYCH: Normal mood and affect. Course Vital Signs Vital signs: Vital Signs Temperature 97.9 F 04/06/23 16:10 Pulse Rate 67 04/06/23 16:10 Respiratory Rate 16 04/06/23 16:10 Blood Pressure 117/75 04/06/23 16:10 Pulse Oximetry 96 04/06/23 16:10 Oxygen Delivery Room Air 04/06/23 16:10 Temperature 97.9 F 04/06/23 16:10 Pulse Rate 67 04/06/23 16:10 Respiratory Rate 16 04/06/23 16:10 Blood Pressure 117/75 04/06/23 16:10 Pulse Oximetry 96 04/06/23 16:10 Oxygen Delivery Room Air 04/06/23 16:10 Medical Decision Making [facility] Narrative Medical decision making narrative: This is a 52-year-old male who presents to the ED with chief complaint of low back pain with bilateral lower extremity radiating pain. This started a week ago. He was seen here at that time. No changes in symptomology or exam today. Vitals are normal. Positive straight leg raise bilaterally. No strength deficits. No sensation deficits. No red flag back signs or symptoms. He
[2023-04-06] MEDS: KETOROLAC 30 MG/ML VIAL (*BKC) IM (16:50)
[2023-04-06] MEDS: predniSONE 20 MG TABLET 40 MG PO (16:51)
== END 2023-04-06 17:21 | disposition home or self-care (01) ==
PROVIDERS: Emergency Provider Physician Assistant; PCP Physician Assistant
DX: M54.16 Radiculopathy, lumbar region (principal); E78.5 Hyperlipidemia, unspecified; F17.200 Nicotine dependence, unspecified, uncomplicated; Z79.82 Long term (current) use of aspirin
CPT/HCPCS: 96372; 99283; J1885; J7512

== ENCOUNTER 2023-06-19 15:20 | Emergency (ER) | payer OTHER, SELFPAY ==
--- NOTE | ~2023-06-19 | CT_ITS ---
EXAMINATION: CT thoracic spine wo con DATE: 06/19/2023 16:06 INDICATION: Mid and upper chronic back pain. TECHNIQUE: Computed tomography (CT) of the thoracic spine was performed without intravenous contrast. Automated exposure control and iterative reconstruction technique were employed. The dose-length pro duct was 604.34 mGy-cm. COMPARISON: None. FINDINGS: There is mild emphysema. There is mild scarring at the lung apices. There is 18 degrees lev oscoliosis of upper thoracic spine. Vertebral body heights are normal. Intervertebral disc heights ar e normal. There are Schmorl's nodes at multiple levels. There are endplate osteophytes at multiple le vels. There is multilevel mild facet joint osteoarthritis. No neural foraminal stenosis or central ca nal stenosis. IMPRESSION: 1. Mild thoracic spondylosis. 2. Thoracic levoscoliosis. 3. Mild emphysema. Reviewed, dictated and finalized at location E.
[2023-06-19 15:36] VITALS: BP 107/78; PULSE 77; RESP 20; TEMP 36.9; O2SAT 97
--- NOTE | 2023-06-19 15:56 | ED.BACK ---
HPI - Back Pain/Injury General Chief Complaint: Back Pain/Injury <Lucinda Wilson PA-C - Last Filed: 06/19/23 18:51> Stated Complaint: generalized pain from shoulders down to feet <Lucinda Wilson PA-C - Last Filed: 06/19/23 18:51> Time Seen by Provider: 06/19/23 16:31 <ASHLEY Perez Last Filed: 06/19/23 18:51> Source: patient <ASHLEY Perez Last Filed: 06/19/23 18:51> Mode of arrival: ambulatory <ASHLEY Perez Last Filed: 06/19/23 18:51> Limitations: no limitations <ASHLEY Perez Last Filed: 06/19/23 18:51> History of Present Illness HPI Narrative: Patient is a 52-year-old male who presents ED with report of diffuse back pain. Patient reports he has been dealing with chronic neck and back pain for the last 4 years. He was recently found to have a positive JULIETH titer and was referred to rheumatology. Over the last 3 to 4 days patient complains of pain diffusely throughout his back, from his shoulder blades down. He states the pain radiates into his legs and calves bilaterally. He does at times feel somewhat weak in his lower extremities. He has been taking gabapentin and ibuprofen at home without significant improvement. His gabapentin was increased to 400 mg twice daily yesterday. Last took ibuprofen at 1330. Denies saddle anesthesia, numbness down legs, bowel or bladder incontinence, abdominal pain, fevers. <ASHLEY Perez Last Filed: 06/19/23 18:51> Related Data Home Medications: Home Medications Medication Instructions Recorded Confirmed amitriptyline 25 mg tablet mg 06/02/22 aspirin 81 mg tablet,delayed mg 06/02/22 release cetirizine 10 mg tablet (Zyrtec) 10 mg PO DAILY 06/02/22 06/02/22 cholecalciferol (vitamin D3) 25 25 mcg PO DAILY 06/02/22 06/02/22 mcg (1,000 unit) tablet diltiazem HCl 120 mg mg PO 06/02/22 capsule,extended release 24 hr, controlled (DILT-XR) fluticasone propionate 50 intranasal 06/02/22 mcg/actuation nasal spray,suspension meloxicam 7.5 mg tablet mg 06/02/22 rabeprazole 20 mg tablet,delayed mg PO 06/02/22 release rosuvastatin 10 mg tablet mg 06/02/22 triamcinolone acetonide 0.1 % applic topical 06/02/22 topical cream vitamin B complex 1 tablet PO DAILY 06/02/22 06/02/22 duloxetine 60 mg capsule,delayed mg PO 06/19/23 release gabapentin 400 mg capsule mg 06/19/23 06/19/23 <Lucinda Wilson PA-C - Last Filed: 06/19/23 18:51> Allergies/Adverse Reactions: Allergies Allergy/AdvReac Type Severity Reaction Status Date / Time codeine Allergy Difficulty Verified 06/19/23 15:50 Breathing <Lucinda Wilson PA-C - Last Filed: 06/19/23 18:51> Review of Systems Review of Systems: CONSTITUTIONAL: Denies fever, chills, or sweats. CARDIOVASCULAR: Denies chest pain. RESPIRATORY: Denies dyspnea. GASTROINTESTINAL: Denies abdominal pain, nausea, vomiting, or diarrhea. GENITOURINARY: Denies dysuria or hematuria. MUSCULOSKELETAL: See HPI. NEUROLOGIC: See HPI. <Lucinda Wilson PA-C - Last Filed: 06/19/23 18:51> All systems reviewed & are unremarkable except as noted in HPI and below <Lucinda Wilson PA-C - Last Filed: 06/19/23 18:51> [facility] Past Medical History Medical History: Medical History History of hyperlipidemia <Lucinda Wilson PA-C - Last Filed: 06/19/23 18:51> Social History Social History: Social History Smoking status: Current every day smoker <Lucinda iWlson PA-C - Last Filed: 06/19/23 18:51> Exam Narrative: GENERAL: Well appearing, well-nourished, non-toxic, in no acute distress. HEAD: Normocephalic, atraumatic. NECK: Supple. No adenopathy, no masses. No midline spinal tenderness throughout cervical region. RESPIRATORY: Airway
[2023-06-19] MEDS: methocarbamoL 500 MG TABLET 1000 MG PO (15:58)
[2023-06-19] MEDS: ACETAMINOPHEN 500 MG TABLET 1000 MG PO (15:58)
== END 2023-06-19 17:46 | disposition home or self-care (01) ==
PROVIDERS: Emergency Provider Emergency Medicine; PCP Physician Assistant
DX: M54.6 Pain in thoracic spine (principal); E78.5 Hyperlipidemia, unspecified; Z79.82 Long term (current) use of aspirin; M47.814 Spondylosis without myelopathy or radiculopathy, thoracic region; J43.9 Emphysema, unspecified
CPT/HCPCS: 72128; 99284; A9270; J1100

== ENCOUNTER 2023-07-25 10:10 | Outpatient (CLI) | payer OTHER, SELFPAY ==
--- NOTE | ~2023-07-25 | XR_ITS ---
EXAMINATION: XR sacroiliac joints min 3V DATE: 07/25/2023 10:31 INDICATION: Polyarthralgia. Pain radiating to the legs. TECHNIQUE: 3 views of the sacroiliac joints were obtained. COMPARISON: CT lumbar spine 04/01/2023 FINDINGS: Bone alignment is normal. No fracture. There is mild osteoarthritis of the sacroiliac joint s. IMPRESSION: 1. Mild osteoarthritis of the sacroiliac joints. No evidence of inflammatory arthropathy. Reviewed, dictated and finalized at location E. [employer] IMPRESSION: 1. Mild osteoarthritis of the sacroiliac joints. No evidence of inflammatory ar thropathy.
== END 2023-07-25 10:11 | disposition home or self-care (01) ==
PROVIDERS: PCP Physician Assistant; Visit Provider Physician Assistant Medical
DX: M35.00 Sjogren syndrome, unspecified (principal); M46.1 Sacroiliitis, not elsewhere classified
CPT/HCPCS: 72202